=== PATIENT | female | born 1980 ===

== ENCOUNTER → 2016-06-18 | Outpatient (CLI) | payer OTHER ==
--- NOTE | 2016-06-18 12:54 | DX ---
Lumbar Spine, 4 Views Indication: Fall. Pain. Technique: AP, lateral, and oblique views. Comparison: None Findings: Five nonrib-bearing lumbar vertebral bodies are anatomically aligned. No compression fractu re or pars defect. Disk heights are well preserved. A T-shaped intrauterine device is situated in the pelvis. Impression: Negative. No acute fracture or pars defect.
--- NOTE | 2016-06-18 12:59 | DX ---
Sacrum and coccyx - 3 views Indication: Pain. Fall. Comparison: None Technique: Lateral and 2 AP views. Findings: The bones are anatomically aligned. No acute fracture. 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 An intrauterine device is present in the central pelvis. Impression: Negative. No acute fracture.
== END ==
LOC: BMCIMAGING 12:02
PROVIDERS: ATTEND Family Medicine
DX: M54.5 Low back pain (principal)